=== PATIENT | male | born 1955 | race Caucasian/White ===

== ENCOUNTER 2016-10-29 17:59 | Emergency (ER) | payer OTHER ==
[2016-10-29 18:13] VITALS: BP 149/89
[2016-10-29] MEDS ORDERED: DOXYcycline CAP(*) 100 MG PO ONE (18:33)
--- NOTE | 2016-10-29 18:45 | UC ---
bakari Roche Timothy, scribed for Pat Aguilera MD on 10/29/16 at 1831 . Skin Complaint HPI - HPI Summary HPI Summary: Petr mata is a 61 yo male presenting to [facility] with a tick bite on his lower right thigh. The tick was removed by his . He states he is not sure how long the tick was present, but it might have been on since 10/27/16. His MHx includes HTN and former tobacco use. he takes dora and HTN medication every day. - History of Current Complaint Chief Complaint: UCSkin Time Seen by Provider: 10/29/16 18:31 Stated Complaint: TICK BITE Hx Obtained From: Patient Onset/Duration: Sudden Onset, Still Present Skin Exposure Onset/Duration: Days Ago Timing: Constant Onset Severity: Moderate Current Severity: Moderate Pain Intensity: 0 Pain Scale Used: 0-10 Numeric Location: Discrete - lower right posterior thigh Character: Redness Aggravating: Nothing Alleviating: Nothing Associated Signs & Symptoms: Positive: Rash. Negative: Red Streaks, Joint Swelling Related History: Insect Bite/Sting - Allergy/Home Medications Allergies/Adverse Reactions: Allergies Allergy/AdvReac Type Severity Reaction Status Date / Time No Known Allergies Allergy Verified 03/11/16 07:53 Review of Systems Constitutional: Negative Skin: Other - tick bite lower right thigh Eyes: Negative ENT: Negative Respiratory: Negative Cardiovascular: Negative Gastrointestinal: Negative Genitourinary: Negative Motor: Negative Neurovascular: Negative Musculoskeletal: Negative Neurological: Negative Psychological: Negative All Other Systems Reviewed And Are Negative: Yes PMH/Surg Hx/FS Hx/Imm Hx Endocrine History Of: Denies: Diabetes, Thyroid Disease Cardiovascular History Of: Reports: Hypertension Denies: Cardiac Disorders Respiratory History Of: Denies: COPD, Asthma GI/ History Of: Denies: Ulcer - Surgical History Surgical History: None - Family History Known Family History: Positive: Other - Colon cancer - F Negative: Cardiac Disease, Diabetes - Social History Lives: With Family Alcohol Use: Occasionally Substance Use Type: None Smoking Status (MU): Former Smoker Length of Time of Smoking/Using Tobacco: 20 years ago Physical Exam Triage Information Reviewed: Yes Appearance: No Pain Distress, Well-Nourished, Ill-Appearing Vital Signs: Initial Vital Signs Temp 98 F 10/29/16 18:09 Pulse 79 10/29/16 18:09 Resp 18 10/29/16 18:09 BP 149/89 10/29/16 18:09 Pulse Ox 100 10/29/16 18:09 Vital Signs Reviewed: Yes Eyes: Positive: Conjunctiva Clear ENT: Positive: Hearing grossly normal. Negative: Muffled/hoarse voice Neck: Positive: Supple, Nontender Respiratory: Positive: Lungs clear, Normal breath sounds, No respiratory distress Cardiovascular: Positive: RRR, No Murmur, Pulses Normal, Brisk Capillary Refill Musculoskeletal: Positive: Strength Intact, ROM Intact Neurological: Positive: Alert, Muscle Tone Normal Psychological Exam: Normal Psychological: Positive: Age Appropriate Behavior Skin: Positive: Other - 1cm erythematous round area with a darker center on the lower right thigh. Tick appears to be fully removed. Course/Dx - Course Course Of Treatment: Petr Mata is a 61 yo male presenting to [facility] with a tick bite on his lower right thigh. Of note is his BP in room of 149/89. After clinical examination, he will be discharged with tick exposure and hypertension in poor control. His medications were reviewed at this visit. - Differential Diagnoses - Skin Complaint Differential Diagnoses: Cellulitis, Contact Dermatitis, Tick Born Illness - Diagnoses Provider Diagnoses: HTN in poor control, tick exposure Discharge - Discharge Plan Condition: Stable Disposition: HOME Patient Education Materials: Tick Bite (ED), Lyme Disease (ED) Referrals: Javier Tenorio MD [Primary Care Provider] - 1 Week Additional Instructions: Please follow up with your primary care physician regarding your visit to urgent care today. You have received a prophylactic treatment for Lyme disease due to your tick exposure. Return to urgent care or the emergency department with any new or recurring symptoms, particularly any rashes, fever or widespread joint pain. In the future you should spray your clothes with permethrin to avoid tick exposure, and tuck your pant legs into your socks to minimize areas of possible exposure. Additionally, check yourself frequently and thoroughly for ticks. The documentation as recorded by the bakari pacheco Timothy accurately reflects the service I personally performed and the decisions made by , Pat Aguilera MD.
--- NOTE | 2016-10-30 17:37 | UC ---
Progress - Progress Note Progress Note: During a courtesy call back, pt brought up that he received only one doxycycline tab when he was expecting two, based on my discussion with him. Pt states he questioned it at the time, but it was not brought to my attention. Order reviewed, only one tab was ordered by me in the computer. Discussed with pt that it is still worth taking. Will send [facility]. Pt voices understanding.
== END 2016-10-29 18:43 | disposition home or self-care (01) ==
LOC: UCEAST 17:59
DX: S70.361A Insect bite (nonvenomous), right thigh, initial encounter (principal); W57.XXXA Bitten or stung by nonvenomous insect and other nonvenomous arthropods, initial encounter; Y93.9 Activity, unspecified; Y92.9 Unspecified place or not applicable; I10 Essential (primary) hypertension; Z87.891 Personal history of nicotine dependence
CPT/HCPCS: 99212; A9270-GY; G0463

== ENCOUNTER 2019-08-31 15:43 | Emergency (ER) | payer OTHER ==
[2019-08-31] MEDS ORDERED: Tetan/Diph/Pertus SYR(Tdap)* 0.5 ML SYR(BOOSTRIX) use SYR contains LATEX IM ONE (15:51)
[2019-08-31] MEDS ORDERED: Lidocaine 1% MPF ** 5 ML VIAL INJ ONE (15:52)
[2019-08-31] MEDS ORDERED: HYDROcodone/ACETAMIN 5-325 MG* 1 TAB PO ONE (16:07)
[2019-08-31] MEDS ORDERED: Cephalexin CAP* 500 MG PO ONE (17:52)
--- NOTE | 2019-08-31 18:01 | ED ---
Laceration/Wound HPI - HPI Summary HPI Summary: This patient is a 63 year old F presenting to ED with a chief complaint of laceration to RLE since [employer]. Patient was cutting wood and cut himself by falling on the sharp wood. Patient denies fever. Tetanus unknown. The patient rates the pain 7/10 in severity. Symptoms aggravated by nothing. Symptoms alleviated by nothing. Medications reviewed. Allergies noted - History of Current Complaint Stated Complaint: RT LEG LAC PER PT Time Seen by Provider: 08/31/19 15:51 Hx Obtained From: Patient Mechanism of Injury: Sharp/Blunt Trauma Onset/Duration: Sudden Onset, Lasting Minutes - Since [employer], Still Present Aggravating: Nothing Alleviating: Nothing Onset Severity: Moderate Current Severity: Moderate Pain Intensity: 7 Pain Scale Used: 0-10 Numeric Associated Signs & Symptoms: Negative - Fever - Allergy/Home Medications Allergies/Adverse Reactions: Allergies Allergy/AdvReac Type Severity Reaction Status Date / Time No Known Allergies Allergy Verified 03/11/16 07:53 Home Medications: Home Medications Fexofenadine (NF) [Nataliia 180 (NF)] 180 mg PO DAILY PRN 11/29/14 [History Confirmed 08/31/19] Cephalexin CAP* [Keflex CAP*] 500 mg PO TID 7 Days #21 cap 08/31/19 [Rx] Lisinopril TAB* [Prinivil TAB*] 5 mg PO DAILY 08/31/19 [History Confirmed ] Mupirocin 2% OINT* [Bactroban 2 % Oint*] 1 applic TOPICAL BID PRN 08/31/19 [ History Confirmed 08/31/19] PMH/Surg Hx/FS Hx/Imm Hx Endocrine/Hematology History: Denies: Hx Diabetes, Hx Thyroid Disease Cardiovascular History: Reports: Hx Hypertension Respiratory History: Denies: Hx Asthma, Hx Chronic Obstructive Pulmonary Disease (COPD) GI History: Denies: Hx Ulcer - Immunization History Date of Influenza Vaccine: Up to date Infectious Disease History: No Infectious Disease History: Denies: Hx Clostridium Difficile, Hx Hepatitis, Hx Human Immunodeficiency Virus (HIV), Hx of Known/Suspected MRSA, Hx Shingles, Hx Tuberculosis, Hx Known/ Suspected VRE, Hx Known/Suspected VRSA, History Other Infectious Disease, Traveled Outside the [place] in Last 30 Days - Family History Known Family History: Positive: Other - Colon cancer - F Negative: Cardiac Disease, Diabetes - Social History Alcohol Use: Daily Hx Substance Use: No Substance Use Type: Reports: None Hx Tobacco Use: No Smoking Status (MU): Former Smoker Length of Time of Smoking/Using Tobacco: 20 years ago Review of Systems Negative: Fever Skin: Other - Laceration to RLE All Other Systems Reviewed And Are Negative: Yes Physical Exam - Summary Physical Exam Summary: General: Well appearing, no distress Cardiovascular: Skin is well perfused Pulmonary: No respiratory distress, no tachypnea Abdomen: Non-distended Skin: 12 cm gash to RLE, irregular in nature, gaping, no active bleeding Psych: Normal affect Neuro: A&Ox3 Back: no CVA tenderness Triage Information Reviewed: Yes Vital Signs On Initial Exam: Initial Vitals Temp Pulse Resp BP Pulse Ox 97.5 F 73 19 114/66 91 08/31/19 16:01 08/31/19 16:01 08/31/19 16:01 08/31/19 16:01 08/31/19 16:01 Vital Signs Reviewed: Yes Procedures - Sedation Patient Received Moderate/Deep Sedation with Procedure: No - Laceration/Wound Repair 1 Location: lower extremity - right Description: Irregular Anesthesia: Local, 1.0%, Lido, Epi Length, Depth and Shape: 12 cm gash to RLE, irregular shape Laceration/Wound Explored: clean Closure: Monetta #__ - 11 Suture Type: Prolene - 8 3-O. 2 horizontal mattress. Rest simple interrupted. , Vicryl - 5 deep 4-O Number of Sutures: 13 Diagnostics - Vital Signs Vital Signs Temp Pulse Resp BP Pulse Ox 08/31/19 16:01 97.5 F 73 19 114/66 91 - Laboratory Lab Statement: Any lab studies that have been ordered have been reviewed, and results considered in the medical decision making process. - Radiology LE XR Radiology Interpretation Completed By: Radiologist Summary of Radiographic Findings: #. Soft tissue laceration with subcutaneous emphysema at the anterior medial aspect at. the level of the mid diaphysis. The injury likely involves the subcutaneous tissue plane. and skeletal musculature. No radiographic conspicuous foreign body evident. #. Negative for fracture or articular malalignment. Dr. Akers has reviewed this radiology report. Laceration Repair Course/Dx - Course Course Of Treatment: Patient's here with a complex laceration to his right parra. Patient had an x-ray which showed no fracture. Patient was given tetanus. Patient had copious irrigation of his wound. Patient had deep layer sutures placed. Patient had his skin repaired with juan m and sutures. Patient was started on prophylactic antibiotics given the nature of his wound. - Clinical Impression Provider Diagnoses: Laceration of right lower extremity Discharge ED - Sign-Out/Discharge Documenting (check all that apply): Patient Departure - Discharge - Discharge Plan Condition: Improved Disposition: HOME Prescriptions: Cephalexin CAP* [Keflex CAP*] 500 mg PO TID 7 Days #21 cap Patient Education Materials: Laceration (ED) Referrals: Saleem Degroot MD [Primary Care Provider] - Additional Instructions: Please keep your wound covered with a dressing as it will likely drain fluid over the next couple of days Please take Motrin and Tylenol for pain You can shower but keep your wound dry and clean outside of the shower. Return to the emergency department if you have redness around your wound, fever , pus draining from your wound, any other concerning symptoms You need to have your juan m and stitches removed in 10-14 days by your primary care doctor, urgent care, or here. In total, you had 11 juan m and 8 sutures - Billing Disposition and Condition Condition: IMPROVED Disposition: Home - Attestation Statements Document Initiated by Debbie: Yes Documenting Scribe: Samuel Johnson Provider For Whom Debbie is Documenting (Include Credential): Jonatan Akers MD Scribe Attestation: ISamuel, scribed for Jonatan Akers MD on 08/31/19 at 1853. Scribe Documentation Reviewed: Yes Provider Attestation: The documentation as recorded by the francoisibe, Samuel Johnson accurately reflects the service I personally performed and the decisions made by me, Jonatan Akers MD Status of Scribe Document: Viewed
[2019-08-31 18:37] VITALS: BP 137/78
== END 2019-08-31 18:16 | disposition home or self-care (01) ==
LOC: ED 15:43
DX: S81.811A Laceration without foreign body, right lower leg, initial encounter (principal); Z23 Encounter for immunization; W45.8XXA Other foreign body or object entering through skin, initial encounter; Y92.9 Unspecified place or not applicable; I10 Essential (primary) hypertension; Z87.891 Personal history of nicotine dependence; Z79.899 Other long term (current) drug therapy
CPT/HCPCS: 12004; 90471; 90715; 99282; A9270-GY